=== PATIENT | male | born 1975 | race Caucasian/White ===

== ENCOUNTER 2017-04-07 14:01 | Emergency (ER) | payer MEDICAID ==
[2017-04-07 14:10] VITALS: BP 122/81; PULSE 102; RESP 16; TEMP 98.3; O2SAT 96
[2017-04-07] MEDS ORDERED: Bacitracin 500 Units/gm Oint Foilpak UD TOP ONE (14:35)
--- NOTE | 2017-04-07 15:01 | C.PDOC ---
History Of Present Illness 41 y/o male presents to ED with complaints of right foot pain since this morning. 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 Patient denies change in sensation, numbness, tingling or any other complaints at this time. Time Seen by Provider: 04/07/17 14:23 Chief Complaint (Nursing): Lower Extremity Problem/Injury History Per: Patient History/Exam Limitations: no limitations Onset/Duration Of Symptoms: Days Current Symptoms Are (Timing): Still Present Past Medical History Reviewed: Historical Data, Nursing Documentation, Vital Signs Vital Signs: Last Vital Signs Temp 98.3 F 04/07/17 14:07 Pulse 102 H 04/07/17 14:07 Resp 16 04/07/17 14:07 BP 122/81 04/07/17 14:07 Pulse Ox 96 04/07/17 16:59 - Medical History PMH: Diabetes, HTN Family History: States: No Known Family Hx - Social History Hx Tobacco Use: No Hx Alcohol Use: No Hx Substance Use: No - Immunization History Hx Tetanus Toxoid Vaccination: No Hx Influenza Vaccination: No Hx Pneumococcal Vaccination: No Review Of Systems Except As Marked, All Systems Reviewed And Found Negative. Gastrointestinal: Negative for: Nausea, Vomiting Musculoskeletal: Positive for: Foot Pain. Negative for: Leg Pain Skin: Negative for: Rash Neurological: Negative for: Weakness, Numbness, Dizziness Physical Exam - Physical Exam Appears: Non-toxic, No Acute Distress Skin: Warm, No Rash Head: Atraumatic, Normacephalic Eye(s): bilateral: Normal Inspection, EOMI Nose: Normal Oral Mucosa: Moist Neck: Supple Chest: Symmetrical Respiratory: No Accessory Muscle Use Extremity: Normal ROM, Tenderness, Capillary Refill (<2 seconds), No Deformity, No Swelling, Other (Two puncture wounds to plantar aspect of right foot, dry blood ) Pulses: Left Dorsalis Pedis: Normal, Right Dorsalis Pedis: Normal Neurological/Psych: Oriented x3, Normal Speech, Normal Cognition, Normal Motor, Normal Sensation ED Course And Treatment O2 Sat by Pulse Oximetry: 96 (RA) Pulse Ox Interpretation: Normal Progress Note: Wounds irrigated and cleansed by RN. Patient offered xray but declined, discussed signs of wound infection, wound care and follow up with PMD in 1-2 days. Disposition - Disposition Disposition: HOME/ ROUTINE Disposition Time: 14:58 Condition: STABLE Additional Instructions: Follow up with primary medical doctor in 1-3 days without fail for further evaluation. Take medications as prescribed. Return to the emergency department at any time if symptoms persist or worsen. 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 - Scribe Statement The provider has reviewed the documentation as recorded by the Julisa May All medical record entries made by the Julisa were at my direction and personally dictated by me. I have reviewed the chart and agree that the record accurately reflects my personal performance of the history, physical exam, medical decision making, and the department course for this patient. I have also personally directed, reviewed, and agree with the discharge instructions and disposition.
[2017-04-07] MEDS ORDERED: Bacitracin 500 Units/gm Oint Foilpak UD ONE (15:19)
== END 2017-04-07 15:37 | disposition home or self-care (01) ==
LOC: C.ER 14:01
DX: S91.331A Puncture wound without foreign body, right foot, initial encounter (principal); W22.8XXA Striking against or struck by other objects, initial encounter; Z23 Encounter for immunization

== ENCOUNTER 2017-12-22 19:01 | Emergency (ER) | payer MEDICAID ==
[2017-12-22 19:17] VITALS: BP 128/83; PULSE 95; RESP 20; TEMP 97; O2SAT 100
--- NOTE | 2017-12-22 20:26 | C.PDOC ---
History Of Present Illness 42 y/o male presents to ED s/p twisting right ankle walking down the stairs earlier today with complaints of right ankle and foot pain. Patient denies numbness,weakness, back pain or any other complaints at this time. Time Seen by Provider: 12/22/17 19:21 Chief Complaint (Nursing): Lower Extremity Problem/Injury History Per: Patient History/Exam Limitations: no limitations Onset/Duration Of Symptoms: Hrs Current Symptoms Are (Timing): Still Present Past Medical History Reviewed: Historical Data, Nursing Documentation, Vital Signs Vital Signs: Last Vital Signs Temp 97 F L 12/22/17 19:15 Pulse 95 H 12/22/17 19:15 Resp 20 12/22/17 21:00 BP 128/83 12/22/17 19:15 Pulse Ox 100 12/22/17 20:49 - Medical History PMH: Diabetes, HTN Surgical History: No Surg Hx Family History: States: No Known Family Hx - Social History Hx Tobacco Use: No Hx Alcohol Use: No Hx Substance Use: No - Immunization History Hx Tetanus Toxoid Vaccination: No Hx Influenza Vaccination: No Hx Pneumococcal Vaccination: No Review Of Systems Cardiovascular: Negative for: Chest Pain Musculoskeletal: Positive for: Foot Pain. Negative for: Leg Pain Skin: Negative for: Rash Neurological: Negative for: Weakness, Numbness Physical Exam - Physical Exam Appears: Non-toxic, No Acute Distress Skin: Warm, No Rash Head: Atraumatic, Normacephalic Eye(s): bilateral: Normal Inspection Oral Mucosa: Moist Extremity: Tenderness (To right lateral malleolus and lateral aspect of right foot), Capillary Refill (<2 seconds), No Deformity, Swelling (right foot), Other (Erythema to right foot ) Extremity: Bilateral: Normal Color And Temperature Pulses: Left Dorsalis Pedis: Normal, Right Dorsalis Pedis: Normal Neurological/Psych: Oriented x3, Normal Motor, Normal Sensation Gait: Other (with a mild ,limp due to pain) ED Course And Treatment O2 Sat by Pulse Oximetry: 100 (RA) Pulse Ox Interpretation: Normal - Other Rad Right ankle X-Ray: Interpreted by Me, Viewed By Me Interpretation: No fx or dislocation Right foot X-Ray: Interpreted by Me, Viewed By Me Interpretation: NO fx or dislocation Progress Note: XR results d/w pt who was informed will be contacted if any XR discrepancies. pt was placed in ULISSES wrap by RN. pt ambulatory with mild limp due to pain but refused crutches- has a pair at home ( instructed no to low weight bearing for at least 2-3 days along with elavation and NSAID . Pt advised follow up with PMD for ortho referral as needed Reassessment Condition: Improved Medical Decision Making Medical Decision Making: Plan: Motrin and Xray Disposition Counseled Patient/Family Regarding: Diagnosis - Disposition Referrals: Celina Dejesus [Staff Provider] - Disposition: HOME/ ROUTINE Disposition Time: 20:47 Condition: STABLE Additional Instructions: Leg elevation Apply ICE to area Follow up with your doctor for orthopedist refereal as needed Return to ER if worse Prescriptions: Ibuprofen [Motrin] 600 mg PO Q6H #24 tab Instructions: Ankle Sprain (DC) Forms: [employer] ([place]) Print Language: MONGOLIAN - Clinical Impression Clinical Impression: Right ankle sprain - 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 - Scribe Statement The provider has reviewed the documentation as recorded by the Johnathanibstacy May All medical record entries made by the Julisa were at my direction and personally dictated by me. I have reviewed the chart and agree that the record accurately reflects my personal performance of the history, physical exam, medical decision making, and the department course for this patient. I have also personally directed, reviewed, and agree with the discharge instructions and disposition.
--- NOTE | 2017-12-23 11:40 | RAD ---
PROCEDURE: Right Foot Radiographs. HISTORY: pain, swelling, latersl aspect COMPARISON: None. FINDINGS: BONES: No acute fracture or destructive bony lesion identified. JOINTS: Normal. SOFT TISSUES: Normal. OTHER FINDINGS: None. IMPRESSION: Unremarkable right foot radiographs.
--- NOTE | 2017-12-23 11:41 | RAD ---
PROCEDURE: Right Ankle Radiographs. HISTORY: R/O FX COMPARISON: None FINDINGS: BONES: No acute fracture or destructive bony lesion identified. A small accessory ossicle seen inferior to the medial malleolus JOINTS: Normal. No osteoarthritis. Ankle mortise maintained. Talar dome intact SOFT TISSUES: Normal. OTHER FINDINGS: None. IMPRESSION: Unremarkable right ankle radiographs.
== END 2017-12-22 21:00 | disposition home or self-care (01) ==
LOC: C.ER 19:01
DX: S93.401A Sprain of unspecified ligament of right ankle, initial encounter (principal); X50.1XXA Overexertion from prolonged static or awkward postures, initial encounter; Y92.9 Unspecified place or not applicable

== ENCOUNTER 2018-04-08 16:40 | Emergency (ER) | payer MEDICAID ==
[2018-04-08] MEDS ORDERED: Sodium Chloride 0.9% 2,000 ML IV ONE (17:06)
[2018-04-08 17:38] LABS: LYMPH # 1.2 K/uL (1.0-4.3); MONO # 0.9 K/uL (0.0-0.8)
[2018-04-08 17:57] LABS: ALB/GLOB RATIO 1.6 (1.0-2.1); ALBUMIN 5.5 g/dL (3.5-5.0); ALT/SGPT 48 U/L (21-72); AST/SGOT 44 U/L (17-59); BLOOD UREA NITROGEN 24 mg/dL (9-20); CALCIUM 10.4 mg/dl (8.6-10.4); GFR NON-AFRICAN AMERICAN 42
--- NOTE | 2018-04-08 17:58 | C.PDOC ---
History Of Present Illness 42 y/o male with history of DM and HTN presents to ED with c/o fatigue, dehydration, weakness and x1 episode vomiting since earlier today while working outside. Patient states he went home and symptoms persisted prompting visit to ED. Patient denies chest pain, sob, loc or any other complaints at this time. Time Seen by Provider: 04/08/18 17:05 Chief Complaint (Nursing): GI Problem History Per: Patient History/Exam Limitations: no limitations Onset/Duration Of Symptoms: Hrs Current Symptoms Are (Timing): Still Present Past Medical History Reviewed: Historical Data, Nursing Documentation, Vital Signs Vital Signs: Last Vital Signs Temp 98.5 F 04/08/18 16:50 Pulse 114 H 04/08/18 16:50 Resp 17 04/08/18 16:50 BP 126/88 04/08/18 16:50 Pulse Ox 97 04/08/18 18:55 - Medical History PMH: Diabetes, HTN Surgical History: No Surg Hx Family History: States: No Known Family Hx - Social History Hx Tobacco Use: No Hx Alcohol Use: No Hx Substance Use: No - Immunization History Hx Tetanus Toxoid Vaccination: No Hx Influenza Vaccination: No Hx Pneumococcal Vaccination: No Review Of Systems Except As Marked, All Systems Reviewed And Found Negative. Constitutional: Positive for: Weakness, Other (fatigue) Gastrointestinal: Positive for: Nausea, Vomiting Physical Exam - Physical Exam Appears: Non-toxic, No Acute Distress Skin: Warm, Dry, No Rash Head: Atraumatic, Normacephalic Eye(s): bilateral: Normal Inspection Oral Mucosa: Dry Neck: Supple Cardiovascular: Rhythm Regular Respiratory: Normal Breath Sounds, No Rales, No Rhonchi, No Wheezing Gastrointestinal/Abdominal: Soft, No Tenderness, No Guarding, No Rebound Neurological/Psych: Oriented x3, Normal Speech, Normal Cognition ED Course And Treatment - Laboratory Results Result Diagrams: 04/08/18 17:34 04/08/18 17:34 ECG: Interpreted By Me, Viewed By Me ECG Rhythm: Sinus Tachycardia Rate From EC (BPM) O2 Sat by Pulse Oximetry: 97 (RA) Pulse Ox Interpretation: Normal Medical Decision Making Medical Decision Making: Assessment: Heat exposure case s/o to Dr. Cunha at 1900 pending cxr, reevaluation and disposition Disposition - Disposition Disposition Time: 19:00 Condition: STABLE Forms: [employer] (Yi) - Clinical Impression Clinical Impression: Heat exhaustion - Scribe Statement The provider has reviewed the documentation as recorded by the Scribe Estevan May All medical record entries made by the Scribe were at my direction and personally dictated by me. I have reviewed the chart and agree that the record accurately reflects my personal performance of the history, physical exam, medical decision making, and the department course for this patient. I have also personally directed, reviewed, and agree with the discharge instructions and disposition. Physician Patient Turnover Patient Signed Over To: Alejandro Cunha
[2018-04-08 18:10] LABS: BASO # 0.2 K/uL (0.0-0.2); EOS % 0.1 % (0.0-4.0); LYMPH % 7.1 % (20.0-40.0); MEAN CELL VOLUME 85.7 fL (80.0-94.0); MEAN CORPUSCULAR HEMOGLOBIN 30.4 pg (27.0-31.0); MEAN CORPUSCULAR HGB CONC 35.4 g/dL (33.0-37.0); MEAN PLATELET VOLUME 9.1 fL (7.2-11.7); MONO % 5.3 % (0.0-10.0); NEUT # 14.6 K/uL (1.8-7.0); NEUT % 86.5 % (50.0-75.0); NRBC % 0.2 % (0.0-2.0); RBC 5.53 Mil/uL (4.40-5.90); RED CELL DISTRIBUTION WIDTH 12.5 % (11.5-14.5)
[2018-04-08 18:12] LABS: HEMOGLOBIN 16.8 g/dL (12.0-18.0); PLATELET COUNT 336 K/uL (130-400); WHITE BLOOD COUNT 16.9 K/uL (4.8-10.8)
[2018-04-08 18:27] LABS: SQUAMOUS EPITHIAL 1 /hpf (0-5); URINE BACTERIA RARE (<OCC); URINE BILIRUBIN NEGATIVE (NEGATIVE); URINE BLOOD 1+ (NEGATIVE); URINE CLARITY Hazy (Clear); URINE COLOR Amber (YELLOW); URINE GLUCOSE (UA) 3+ mg/dL (Normal); URINE HYALINE CAST >20 /lpf (0-2); URINE LEUKOCYTE ESTERASE NEG Leu/uL (Negative); URINE PROTEIN 2+ mg/dL (NEGATIVE); URINE UROBILINOGEN NORMAL mg/dL (0.2-1.0)
[2018-04-08 18:38] LABS: LYMPHOCYTE 9 % (20-40); MONOCYTE 4 % (0-10); NEUTROPHIL 87 % (50-75); PLATELET ESTIMATE NORMAL (NORMAL); TOTAL CELLS COUNTED 100
[2018-04-08] MEDS ORDERED: Sodium Chloride 0.9% 1,000 ML IV STA (19:40)
[2018-04-08] MEDS ORDERED: Sodium Chloride 0.9% 1,000 ML ONE (19:48)
[2018-04-08 20:23] VITALS: RESP 18
[2018-04-08 21:57] VITALS: BP 121/74; PULSE 74; TEMP 97.6; O2SAT 98
--- NOTE | 2018-04-09 08:00 | RAD ---
Chest x-ray single frontal view History: Fatigue. Comparison: 07/19/2015 Findings: No focal infiltrate or effusion. Tortuous aorta. Heart size within normal limits. Impression: No focal infiltrate or effusion.
--- NOTE | 2018-04-09 20:09 | CARD ---
APPROVED REPORT Date of service: 04/08/2018 EKG Measurement Heart [id number] NM [id number] <Conclusion> Sinus tachycardia Otherwise normal ECG
== END 2018-04-08 21:48 | disposition home or self-care (01) ==
LOC: C.ER 16:40
DX: T67.5XXA Heat exhaustion, unspecified, initial encounter (principal); I10 Essential (primary) hypertension; E11.9 Type 2 diabetes mellitus without complications
CPT/HCPCS: 71045; 80053; 81001; 82550; 82948; 83735; 84443; 84484; 85025; 93005; 96360; 99285; J7030

== ENCOUNTER 2018-06-08 16:55 | Inpatient (IN) | payer MEDICAID ==
--- NOTE | 2018-06-08 18:00 | C.PDOC ---
History Of Present Illness 43 year old male with PMHx of DM was sent to ED by Dr. Dejesus for evaluation of cellulitis to L lower leg worsening since yesterday. Patient states had a fall at work one week ago causing laceration to L lower leg which began developing redness, warmth and pain yesterday despite taking amoxicillin BID for the past week. He was given one dose of IV abx at his PMD's office today (does not recall which abx). Denies fever, chills, diaphoresis. <Sandra Ham P - Last Filed: 06/08/18 20:53> <Phu Rodriguez E - Last Filed: 06/08/18 17:48> <Sandra Ham P - Last Filed: 06/08/18 20:53> Time Seen by Provider: 06/08/18 17:48 Chief Complaint (Nursing): Abnormal Skin Integrity Past Medical History Vital Signs: Last Vital Signs Temp 99.1 F 06/08/18 17:21 Pulse 93 H 06/08/18 17:21 Resp 18 06/08/18 17:21 BP 116/79 06/08/18 17:21 Pulse Ox 97 06/08/18 17:21 - Medical History PMH: Diabetes, HTN - Social History Hx Tobacco Use: No Hx Alcohol Use: No Hx Substance Use: No - Immunization History Hx Tetanus Toxoid Vaccination: No Hx Influenza Vaccination: No Hx Pneumococcal Vaccination: No <Phu Rodriguez E - Last Filed: 06/08/18 17:48> Vital Signs: Last Vital Signs Temp 97.9 F 06/08/18 19:44 Pulse 86 06/08/18 19:44 Resp 18 06/08/18 19:44 BP 129/83 06/08/18 19:44 Pulse Ox 97 06/08/18 19:44 Family History: States: No Known Family Hx <Sandra Ham P - Last Filed: 06/08/18 20:53> Review Of Systems Constitutional: Negative for: Fever, Chills Cardiovascular: Negative for: Chest Pain, Palpitations Respiratory: Negative for: Cough, Shortness of Breath Gastrointestinal: Negative for: Nausea, Vomiting Genitourinary: Negative for: Dysuria, Frequency Musculoskeletal: Positive for: Leg Pain Neurological: Negative for: Weakness, Numbness, Dizziness <Sandra Ham P - Last Filed: 06/08/18 20:53> Physical Exam - Physical Exam Appears: Non-toxic, No Acute Distress Skin: Warm, Other (L anterior holliday with erythema, warmth and edema demarcated with black ink.) Head: Atraumatic, Normacephalic Lips: Laceration (to vermillian border of lower lip) Throat: Normal, No Erythema Neck: Normal, Normal ROM Cardiovascular: Rhythm Regular, No Rhythm Irregular, No Friction Rub, No Murmur, No JVD Respiratory: Normal Breath Sounds, No Decreased Breath Sounds, No Accessory Muscle Use, No Rales, No Rhonchi, No Stridor, No Wheezing Gastrointestinal/Abdominal: Normal Exam, Bowel Sounds, Soft, No Tenderness, No Guarding, No Rebound Extremity: Normal ROM, Tenderness (to palpation of L holliday), Other (healing lac eration mid L holliday with surrounding area to erythema and warmth) Pulses: Left Dorsalis Pedis: Normal, Right Dorsalis Pedis: Normal Neurological/Psych: Oriented x3, Normal Cranial Nerves, Normal Motor <HamSandra P - Last Filed: 06/08/18 20:53> ED Course And Treatment O2 Sat by Pulse Oximetry: 97 <Phu Rodriguez E - Last Filed: 06/08/18 17:48> - Laboratory Results Result Diagrams: 06/08/18 18:35 06/08/18 18:35 <Sandra Ham P - Last Filed: 06/08/18 20:53> Medical Decision Making Medical Decision Making: Plan: CBC: WNL CMP: glc 115 L tibia Xray-negative CXR-negativeDose of zosyn and vanco given. Case discussed with Dr. Cabrera who accepts admission. <Sandra Ham P - Last Filed: 06/08/18 20:53> Disposition <Phu Rodriguez E - Last Filed: 06/08/18 17:48> - Disposition Disposition Time: 19:30 <Sandra Ham P - Last Filed: 06/08/18 20:53> - Disposition Disposition: HOSPITALIZED Condition: STABLE - Clinical Impression Clinical Impression: Cellulitis
[2018-06-08] MEDS ORDERED: Piperacillin/Tazobact 3.375 gm 100 ML IV STA (18:04)
[2018-06-08] MEDS ORDERED: Vancomycin 1 GM 1 GM/250 ML BAG IV SCH (18:15)
[2018-06-08 18:40] LABS: BASO # 0.1 K/uL (0.0-0.2); BASO % 1.2 % (0.0-2.0); EOS # 0.3 K/uL (0.0-0.7); HEMOGLOBIN 13.9 g/dL (12.0-18.0); LYMPH # 2.2 K/uL (1.0-4.3); LYMPH % 21.1 % (20.0-40.0); MEAN CELL VOLUME 85.6 fL (80.0-94.0); MEAN CORPUSCULAR HEMOGLOBIN 30.4 pg (27.0-31.0); MEAN CORPUSCULAR HGB CONC 35.5 g/dL (33.0-37.0); MEAN PLATELET VOLUME 7.8 fL (7.2-11.7); MONO # 0.6 K/uL (0.0-0.8); MONO % 5.6 % (0.0-10.0); NEUT # 7.2 K/uL (1.8-7.0); NEUT % 69.1 % (50.0-75.0); RBC 4.59 Mil/uL (4.40-5.90); RED CELL DISTRIBUTION WIDTH 12.4 % (11.5-14.5); WHITE BLOOD COUNT 10.4 K/uL (4.8-10.8)
[2018-06-08 18:53] LABS: ALB/GLOB RATIO 1.6 (1.0-2.1); ALBUMIN 4.6 g/dL (3.5-5.0); ALT/SGPT 37 U/L (21-72); AST/SGOT 30 U/L (17-59); BLOOD UREA NITROGEN 14 mg/dL (9-20); CALCIUM 9.8 mg/dl (8.6-10.4); GFR NON-AFRICAN AMERICAN > 60
--- NOTE | 2018-06-08 18:56 | RAD ---
Date of service: 06/08/2018 PROCEDURE: CHEST RADIOGRAPH, 1 VIEW HISTORY: SOB COMPARISON: Chest radiograph dated 04/08/2018. FINDINGS: LUNGS: Clear. PLEURA: No pneumothorax or pleural fluid seen. CARDIOVASCULAR: No aortic atherosclerotic calcifications. Cardiomediastinal silhouette within normal limits. OSSEOUS STRUCTURES: No significant abnormalities. VISUALIZED UPPER ABDOMEN: Normal. OTHER FINDINGS: None. IMPRESSION: No active disease.
[2018-06-08] MEDS ORDERED: Piperacillin/Tazobact 3.375 gm 100 ML IVPB ONE (19:28)
[2018-06-08] MEDS ORDERED: Vancomycin 1 GM 1 GM/250 ML BAG IVPB ONE (19:37)
[2018-06-08] MEDS ORDERED: Vancomycin 1 GM 1 GM/250 ML BAG IV ONE (20:00)
[2018-06-08] MEDS ORDERED: Acetaminophen-Codeine 300/30 mg Tab PO ONE (20:08)
[2018-06-08] MEDS: Acetaminophen-Codeine 300/30 mg Tab PO PRN (20:11)
[2018-06-08] MEDS: (Novolin R) Insulin Human Regular 100 units/ml vial SC SCH (21:17)
--- NOTE | 2018-06-08 22:10 | CP.PCM.HP ---
Past Patient History - Infectious Disease Hx of Infectious Diseases: None - Past Social History Smoking Status: Never Smoked - CARDIAC Hx Hypertension: Yes - ENDOCRINE/METABOLIC Hx Diabetes Mellitus Type 2: Yes - PSYCHIATRIC Hx Substance Use: No - SURGICAL HISTORY Hx Surgeries: No - ANESTHESIA Hx Anesthesia: No Meds Allergies/Adverse Reactions: Allergies Allergy/AdvReac Type Severity Reaction Status Date / Time No Known Allergies Allergy Verified 06/08/18 17:24 Results - Vital Signs Recent Vital Signs: Last Vital Signs Temp 97.9 F 06/08/18 19:44 Pulse 86 06/08/18 19:44 Resp 18 06/08/18 19:44 BP 129/83 06/08/18 19:44 Pulse Ox 97 06/08/18 19:44 - Labs Result Diagrams: 06/08/18 18:35 06/08/18 18:35 Labs: Laboratory Results - last 24 hr 06/08/18 06/08/18 06/08/18 18:35 18:35 21:07 WBC 10.4 RBC 4.59 Hgb 13.9 D Hct 39.3 MCV 85.6 MCH 30.4 MCHC 35.5 RDW 12.4 Plt Count 295 MPV 7.8 Neut % (Auto) 69.1 Lymph % (Auto) 21.1 [place] % (Auto) 5.6 Eos % (Auto) 3.0 Baso % (Auto) 1.2 Neut # (Auto) 7.2 H Lymph # (Auto) 2.2 [place] # (Auto) 0.6 Eos # (Auto) 0.3 Baso # (Auto) 0.1 Sodium 136 Potassium 4.4 Chloride 97 L Carbon Dioxide 28 Anion Gap 16 BUN 14 Creatinine 0.6 L Est GFR ( Amer) > 60 Est GFR (Non-Af Amer) > 60 POC Glucose (mg/dL) 158 H Random Glucose 115 H Calcium 9.8 Total Bilirubin 0.5 AST 30 ALT 37 Alkaline Phosphatase 89 Total Protein 7.5 Albumin 4.6 Globulin 2.9 Albumin/Globulin Ratio 1.6
[2018-06-09] MEDS: Piperacillin/Tazobact 3.375 GM in Sodium Chloride 0.9% 100 ML IVPB SCH ×4 (01:15→18:02)
[2018-06-09] MEDS: Acetaminophen-Codeine 300/30 mg Tab PO PRN ×3 (04:56→18:09)
--- NOTE | 2018-06-09 07:47 | RAD ---
Date of service: 06/08/2018 PROCEDURE: Radiographs of the left tibia and fibula. HISTORY: wound L lower lateral fib area, 1 wk ago ? FB COMPARISON: None available. TECHNIQUE: Frontal and lateral views obtained. FINDINGS: BONES: No fracture or destructive lesion. JOINT SPACES: Unremarkable. OTHER FINDINGS: No foreign body. No subcutaneous gas-forming cellulitis. IMPRESSION: No periosteal reaction to suggest osteomyelitis. No cortical interruption. No fracture. No subcutaneous emphysema. No radiopaque foreign body.
[2018-06-09] MEDS: (Novolin R) Insulin Human Regular 100 units/ml vial SC SCH ×5 (08:11→21:18)
[2018-06-09] MEDS: Vancomycin 1 gm/NS 200 ml 1 GM/200 ML BAG IVPB SCH ×2 (08:12→19:48)
--- NOTE | 2018-06-09 10:11 | CP.PCM.CON ---
History of Present Illness - History of Present Illness History of Present Illness: Podiatry Consult Note- Dr. Robb 43 y.o M with PMH of DM and HTN seen and evaluated at bedside with attending Dr. Robb. Patient reports left leg pain and swelling x 1 week. Reports the he feel off a ladder and cut his leg also hitting his mouth. Reports seeking help the same day. Reports getting wounds cleaned up and 4 sutures were placed. Patient reports noticing increase pain, swelling and redness which does not seem to get better and came to the ED for evaluation. Denies nausea, fever, shortness of breath, chest pains or chills. PMH: DM and HTN PSH: denies SH: smoker, socially drinks, denies illicit drug use ALL: NKDA Past Patient History - Infectious Disease Hx of Infectious Diseases: None - Past Medical History & Family History Past Medical History?: Yes - Past Social History Smoking Status: Current Some Days Smoker - CARDIAC Hx Hypertension: Yes - ENDOCRINE/METABOLIC Hx Diabetes Mellitus Type 2: Yes - MUSCULOSKELETAL/RHEUMATOLOGICAL Hx Falls: Yes - PSYCHIATRIC Hx Substance Use: No - SURGICAL HISTORY Hx Surgeries: No - ANESTHESIA Hx Anesthesia: No Meds Allergies/Adverse Reactions: Allergies Allergy/AdvReac Type Severity Reaction Status Date / Time No Known Allergies Allergy Verified 06/08/18 17:24 - Medications Medications: Current Medications Acetaminophen (Tylenol 325mg Tab) 650 mg PO Q6 PRN PRN Reason: Pain, Mild (1-3) Last Admin: 06/08/18 21:15 Dose: 650 mg Acetaminophen/Codeine Phosphate (Tylenol/Codeine 300 Mg/30 Mg) 1 ea PO Q6 PRN PRN Reason: Pain, severe (8-10) Last Admin: 06/09/18 04:56 Dose: 1 ea Glipizide (Glucotrol) 10 mg PO BID [facility] Last Admin: 06/09/18 10:01 Dose: 10 mg Heparin Sodium (Porcine) (Heparin) 5,000 units SC Q12 [facility] Last Admin: 06/09/18 10:01 Dose: 5,000 units Vancomycin/Sodium Chloride (Vancomycin 1 Gm/Ns 200 Ml) 1 gm in 200 mls @ 133.333 mls/hr IVPB Q12H [facility]; Protocol Last Admin: 06/09/18 08:12 Dose: 133.333 mls/hr Piperacillin Sod/Tazobactam (Sod 3.375 gm/ Sodium Chloride) 100 mls @ 200 mls/hr IVPB Q6H [facility]; Protocol Last Admin: 06/09/18 08:16 Dose: 200 mls/hr Influenza Virus Vaccine (Fluzone Quad [id number]) 60 mcg IM .ONCE ONE Stop: 06/10/18 10:01 Insulin Human Regular (Novolin R) 0 unit SC ACHS [facility]; Protocol Last Admin: 06/09/18 08:20 Dose: Not Given Lisinopril (Zestril) 20 mg PO DAILY [facility] Last Admin: 06/09/18 10:01 Dose: 20 mg Metformin HCl (Glucophage) 1,000 mg PO BIDCC [facility] Last Admin: 06/09/18 08:21 Dose: 1,000 mg Pneumococcal Polyvalent Vaccine (Pneumovax 23 Vaccine) 0.5 ml IM .ONCE ONE Stop: 06/10/18 10:01 Rosuvastatin Calcium (Crestor) 10 mg PO HS [facility] Last Admin: 06/08/18 21:07 Dose: 10 mg Physical Exam - Constitutional Appears: Well, Non-toxic, No Acute Distress - Extremities Exam Extremities exam: Negative for: calf tenderness Additional comments: VASC: DP and PT 2/4 bilaterally, CFT < 3 seconds x 10 digits, temperature gradient warm to warm, increase warmth noted to anterior aspect of left leg ORTHO: severe pain with palpation to the anterior aspect of left leg, MM is 5/5 in all four compartments in dorsiflexion, plantarflexion, inversion and eversion NEURO: gross and protective sensation intact DERM: linear longitudinal scabbed over wound measuring 9 cm in length on the anterior aspect of left leg. Periwound erythema measuring 10cm in diameter surrounding scabbed over wound. Very mild fluctanance noted with possible superficial abscess underneath scab. Able to expressed .5 cc of purulence material during evaluation. No odor, no tunneling, no probe to bone. Results - Vital Signs Recent Vital Signs: Last Vital Signs Temp 97.4 F L 06/09/18 07:48 Pulse 82 06/09/18 07:48 Resp 70 H 06/09/18 07:48 BP 117/72 06/09/18 07:48 Pulse Ox 20 L 06/09/18 07:48 - Labs Result Diagrams: 06/08/18 18:35 06/08/18 18:35 Labs: Laboratory Results - last 24 hr 06/08/18 06/08/18 06/08/18 18:35 18:35 21:07 WBC 10.4 RBC 4.59 Hgb 13.9 D Hct 39.3 MCV 85.6 MCH 30.4 MCHC 35.5 RDW 12.4 Plt Count 295 MPV 7.8 Neut % (Auto) 69.1 Lymph % (Auto) 21.1 Reynolds % (Auto) 5.6 Eos % (Auto) 3.0 Baso % (Auto) 1.2 Neut # (Auto) 7.2 H Lymph # (Auto) 2.2 Reynolds # (Auto) 0.6 Eos # (Auto) 0.3 Baso # (Auto) 0.1 Sodium 136 Potassium 4.4 Chloride 97 L Carbon Dioxide 28 Anion Gap 16 BUN 14 Creatinine 0.6 L Est GFR ( Amer) > 60 Est GFR (Non-Af Amer) > 60 POC Glucose (mg/dL) 158 H Random Glucose 115 H Calcium 9.8 Total Bilirubin 0.5 AST 30 ALT 37 Alkaline Phosphatase 89 Total Protein 7.5 Albumin 4.6 Globulin 2.9 Albumin/Globulin Ratio 1.6 06/09/18 07:02 WBC RBC Hgb Hct MCV MCH MCHC RDW Plt Count MPV Neut % (Auto) Lymph % (Auto) Reynolds % (Auto) Eos % (Auto) Baso % (Auto) Neut # (Auto) Lymph # (Auto) Reynolds # (Auto) Eos # (Auto) Baso # (Auto) Sodium Potassium Chloride Carbon Dioxide Anion Gap BUN Creatinine Est GFR ( Amer) Est GFR (Non-Af Amer) POC Glucose (mg/dL) 154 H Random Glucose Calcium Total Bilirubin AST ALT Alkaline Phosphatase Total Protein Albumin Globulin Albumin/Globulin Ratio Assessment & Plan - Assessment and Plan (Free Text) Assessment: 43M with PMH DM and HTN with left leg cellulitis and superfical abscess anterior middle left leg. Plan: Patient seen and examined with attending Dr. Robb Labs, vitals, charts reviewed (afebrile, absent leukocytosis WBC 10.4) X-rays reviewed left leg- no OM, no gas emphysema Wound culture taken of left anterior leg Patient has possible superficial abscess underlying healing wound. Explained to patient about bedside incision and drainage and debridement of all nonviable tissue. Explained to patient the benefits, risks, alternatives and complications. Patient understands and is agreeable All questions/concerns addressed 5 cc of 1% lidocaine and 1.5 cc of .5 % marcaine given in a V block fashion to the left foot proximal to the scabbed over wound and cellulitis. Cleansed site and prep in a normal sterile manner. Using #15 blade and a pickup all nonviable soft tissue was excisionally debrided until healthy epithelized tissue was exposed to the level of the skin. A 1 cm linear incision down to the level of subcutaneous tissue was made at the inferior portion of the scab in which about < .3 cc of purulence drainage was expressed. All sites were copiously irrigated with saline solution. Dressed site with betadine soaked telfa and dsd. Patient tolerated the procedure well. C/w IV abx per primary Thank you for allowing us to participate in patient's care Will continue to follow while in house
[2018-06-09] MEDS ORDERED: Lidocaine 1% PF (5ml) Amp INJ ONE (10:22)
[2018-06-09] MEDS ORDERED: Bupivacaine 0.25% 20 ML INJ IJ ONE (10:30)
--- NOTE | 2018-06-09 12:23 | CARD ---
APPROVED REPORT Date of service: 06/08/2018 EKG Measurement Heart [id number] <Conclusion> Normal sinus rhythm ST & T wave abnormality, consider lateral ischemia Abnormal ECG
[2018-06-09 16:13] VITALS: RESP 20
--- NOTE | 2018-06-09 22:29 | CP.PCM.PN ---
Subjective - Subjective Subjective: dictated Objective - Vital Signs/Intake and Output Vital Signs (last 24 hours): Temp Pulse Resp BP Pulse Ox 98.8 F 84 20 121/74 95 06/09/18 16:12 06/09/18 16:12 06/09/18 16:12 06/09/18 16:12 06/09/18 16:12 Intake and Output: 06/09/18 06/10/18 18:59 06:59 Intake Total 1190 500 Output Total 80 Balance 1190 420 - Medications Medications: Current Medications Acetaminophen (Tylenol 325mg Tab) 650 mg PO Q6 PRN PRN Reason: Pain, Mild (1-3) Last Admin: 06/08/18 21:15 Dose: 650 mg Acetaminophen/Codeine Phosphate (Tylenol/Codeine 300 Mg/30 Mg) 1 ea PO Q6 PRN PRN Reason: Pain, severe (8-10) Last Admin: 06/09/18 18:09 Dose: 1 ea Glipizide (Glucotrol) 10 mg PO BID [facility] Last Admin: 06/09/18 17:04 Dose: 10 mg Heparin Sodium (Porcine) (Heparin) 5,000 units SC Q12 [facility] Last Admin: 06/09/18 21:59 Dose: 5,000 units Vancomycin/Sodium Chloride (Vancomycin 1 Gm/Ns 200 Ml) 1 gm in 200 mls @ 133.333 mls/hr IVPB Q12H [facility]; Protocol Last Admin: 06/09/18 19:48 Dose: 133.333 mls/hr Piperacillin Sod/Tazobactam (Sod 3.375 gm/ Sodium Chloride) 100 mls @ 200 mls/hr IVPB Q6H [facility]; Protocol Last Admin: 06/09/18 18:02 Dose: 200 mls/hr Influenza Virus Vaccine (Fluzone Quad [id number]) 60 mcg IM .ONCE ONE Stop: 06/10/18 10:01 Insulin Human Regular (Novolin R) 0 unit SC ACHS [facility]; Protocol Last Admin: 06/09/18 21:18 Dose: Not Given Lisinopril (Zestril) 20 mg PO DAILY [facility] Last Admin: 06/09/18 10:01 Dose: 20 mg Metformin HCl (Glucophage) 1,000 mg PO BIDCC [facility] Last Admin: 06/09/18 17:03 Dose: 1,000 mg Pneumococcal Polyvalent Vaccine (Pneumovax 23 Vaccine) 0.5 ml IM .ONCE ONE Stop: 06/10/18 10:01 Rosuvastatin Calcium (Crestor) 10 mg PO HS [facility] Last Admin: 06/09/18 22:01 Dose: 10 mg - Labs Labs: 06/08/18 18:35 06/08/18 18:35
[2018-06-10] MEDS: Acetaminophen-Codeine 300/30 mg Tab PO PRN (00:15)
[2018-06-10] MEDS: Piperacillin/Tazobact 3.375 GM in Sodium Chloride 0.9% 100 ML IVPB SCH ×4 (00:19→19:43)
--- NOTE | 2018-06-10 02:57 | PN ---
DATE: 06/09/2018 SUBJECTIVE: The patient is afebrile. He is on antibiotics. Seen by Podiatry. PHYSICAL EXAMINATION: VITAL SIGNS: Blood pressure 121/74, pulse 84, respiratory rate 20, and temperature 98.8. LUNGS: Clear. CARDIOVASCULAR SYSTEM: S1, S2 regular. ABDOMEN: Soft. ASSESSMENT: 1. Left leg laceration with superadded infection. 2. Type 2 diabetes. PLAN: Continue Accucheks, sliding scale, antibiotics. Monitor the patient. Efrain Cabrera MD
[2018-06-10] MEDS: (Novolin R) Insulin Human Regular 100 units/ml vial SC SCH ×4 (08:05→21:46)
[2018-06-10] MEDS: Vancomycin 1 gm/NS 200 ml 1 GM/200 ML BAG IVPB SCH ×2 (08:26→19:41)
--- NOTE | 2018-06-10 08:40 | HP ---
CHIEF COMPLAINT: Left leg pain. HISTORY OF PRESENT ILLNESS: This is a 43-year-old male who had an injury to holliday of his left leg and the wound never healed and it gotten worse with purulent discharge, and he came to emergency room. He is having pain in left holliday; but he denies any fever, chills, rigors. He denies any nausea, vomiting, or diarrhea. Denies any polyuria, polydipsia, or polyphagia. Denies any hematuria or pyuria. He denies any sneezing, itchy eyes, itchy nose. PAST MEDICAL HISTORY: Type 2 diabetes. SOCIAL HISTORY: Nonsmoker, non-EtOH user. CURRENT MEDICATIONS: He is on glipizide, Victoza, lisinopril, metformin. PHYSICAL EXAMINATION: GENERAL: A middle-aged male in no acute distress. VITAL SIGNS: Blood pressure 116/73, pulse 59, respiratory rate 20, and temperature 98.5. SKIN: The patient has a laceration on anterior aspect of left leg with purulent discharge. Laceration is about 4 inches long and skin is lacerated. HEENT: Atraumatic and normocephalic. Negative pallor. Negative jaundice. Extraocular movements are intact. NECK: Supple. No JVD. No lymph node. No thyromegaly. No carotid bruits. CHEST WALL: Bilateral symmetrical expansion. No heave, no thrill, no masses. LUNGS: Clear. No rales. No rhonchi. CARDIOVASCULAR SYSTEM: PMI in the fifth intercostal space. S1, S2 regular. ABDOMEN: Soft, nontender. Bowel sounds are positive. RECTAL: Negative. EXTREMITIES: No clubbing, cyanosis, or edema. CENTRAL NERVOUS SYSTEM: Normal. ASSESSMENT: 1. Left leg laceration with suppurative infection. 2. Diabetes. PLAN: Continue antibiotics, Accu-Chek, sliding scale, tight sugar control. Efrain Cabrera MD
--- NOTE | 2018-06-10 08:54 | CP.PCM.PN ---
<Omkar Robb - Last Filed: 06/10/18 08:54> Subjective - Date & Time of Evaluation Date of Evaluation: 06/10/18 Time of Evaluation: 08:53 - Subjective Subjective: pt seen at bedside for cellulitis of leg left . Objective - Vital Signs/Intake and Output Vital Signs (last 24 hours): Temp Pulse Resp BP Pulse Ox 98.3 F 81 20 111/67 96 06/10/18 00:00 06/10/18 00:00 06/10/18 00:00 06/10/18 00:00 06/10/18 00:00 Intake and Output: 06/10/18 06/10/18 06:59 18:59 Intake Total 940 Output Total 80 Balance 860 - Medications Medications: Current Medications Acetaminophen (Tylenol 325mg Tab) 650 mg PO Q6 PRN PRN Reason: Pain, Mild (1-3) Last Admin: 06/08/18 21:15 Dose: 650 mg Acetaminophen/Codeine Phosphate (Tylenol/Codeine 300 Mg/30 Mg) 1 ea PO Q6 PRN PRN Reason: Pain, severe (8-10) Last Admin: 06/10/18 00:15 Dose: 1 ea Glipizide (Glucotrol) 10 mg PO BID [facility] Last Admin: 06/09/18 17:04 Dose: 10 mg Heparin Sodium (Porcine) (Heparin) 5,000 units SC Q12 [facility] Last Admin: 06/09/18 21:59 Dose: 5,000 units Vancomycin/Sodium Chloride (Vancomycin 1 Gm/Ns 200 Ml) 1 gm in 200 mls @ 133.333 mls/hr IVPB Q12H [facility]; Protocol Last Admin: 06/10/18 08:26 Dose: 133.333 mls/hr Piperacillin Sod/Tazobactam (Sod 3.375 gm/ Sodium Chloride) 100 mls @ 200 mls/hr IVPB Q6H [facility]; Protocol Last Admin: 06/10/18 06:43 Dose: 200 mls/hr Influenza Virus Vaccine (Fluzone Quad [id number]) 60 mcg IM .ONCE ONE Stop: 06/10/18 10:01 Insulin Human Regular (Novolin R) 0 unit SC ACHS [facility]; Protocol Last Admin: 06/10/18 08:05 Dose: Not Given Lisinopril (Zestril) 20 mg PO DAILY [facility] Last Admin: 06/09/18 10:01 Dose: 20 mg Metformin HCl (Glucophage) 1,000 mg PO BIDCC [facility] Last Admin: 06/10/18 08:27 Dose: 1,000 mg Pneumococcal Polyvalent Vaccine (Pneumovax 23 Vaccine) 0.5 ml IM .ONCE ONE Stop: 06/10/18 10:01 Rosuvastatin Calcium (Crestor) 10 mg PO HS [facility] Last Admin: 06/09/18 22:01 Dose: 10 mg - Labs Labs: 06/08/18 18:35 06/08/18 18:35 <Adrián Linder - Last Filed: 06/10/18 10:33> Subjective - Subjective Subjective: Progress Note for Dr. Robb 43 y.o M with PMH of DM and HTN for left leg cellulits. Was seen by attending Dr. Robb in the AM. Denies acute overnight events. Seen resting comfortably in NAD. Patient reports that he is doing well. Reports pain medication helps with the pain. Reports no increase pain s/p left leg incision and drainage of superficial abscess and debridement of all nonviable tissue including the scabs. Dressing is clean, dry, and intact. Denies nausea, fever, shortness of breath, chest pains or chills. Objective - Vital Signs/Intake and Output Vital Signs (last 24 hours): Temp Pulse Resp BP Pulse Ox 98.3 F 81 20 111/67 96 06/10/18 00:00 06/10/18 00:00 06/10/18 00:00 06/10/18 00:00 06/10/18 00:00 Intake and Output: 06/10/18 06/10/18 06:59 18:59 Intake Total 940 Output Total 80 Balance 860 - Medications Medications: Current Medications Acetaminophen (Tylenol 325mg Tab) 650 mg PO Q6 PRN PRN Reason: Pain, Mild (1-3) Last Admin: 06/08/18 21:15 Dose: 650 mg Acetaminophen/Codeine Phosphate (Tylenol/Codeine 300 Mg/30 Mg) 1 ea PO Q6 PRN PRN Reason: Pain, severe (8-10) Last Admin: 06/10/18 00:15 Dose: 1 ea Glipizide (Glucotrol) 10 mg PO BID [facility] Last Admin: 06/09/18 17:04 Dose: 10 mg Heparin Sodium (Porcine) (Heparin) 5,000 units SC Q12 [facility] Last Admin: 06/09/18 21:59 Dose: 5,000 units Vancomycin/Sodium Chloride (Vancomycin 1 Gm/Ns 200 Ml) 1 gm in 200 mls @ 133.333 mls/hr IVPB Q12H [facility]; Protocol Last Admin: 06/10/18 08:26 Dose: 133.333 mls/hr Piperacillin Sod/Tazobactam (Sod 3.375 gm/ Sodium Chloride) 100 mls @ 200 mls/hr IVPB Q6H [facility]; Protocol Last Admin: 06/10/18 06:43 Dose: 200 mls/hr Insulin Human Regular (Novolin R) 0 unit SC ACHS [facility]; Protocol Last Admin: 06/10/18 08:05 Dose: Not Given Lisinopril (Zestril) 20 mg PO DAILY [facility] Last Admin: 06/09/18 10:01 Dose: 20 mg Metformin HCl (Glucophage) 1,000 mg PO BIDCC [facility] Last Admin: 06/10/18 08:27 Dose: 1,000 mg Rosuvastatin Calcium (Crestor) 10 mg PO HS [facility] Last Admin: 06/09/18 22:01 Dose: 10 mg - Labs Labs: 06/08/18 18:35 06/08/18 18:35 - Constitutional Appears: Well, Non-toxic, No Acute Distress - Extremities Exam Extremities Exam: absent: Calf Tenderness Additional comments: VASC: DP and PT 2/4 bilaterally, CFT < 3 seconds x 10 digits, temperature gradient warm to warm, increase warmth noted to anterior aspect of left leg ORTHO: severe pain with palpation to the anterior aspect of left leg, MM is 5/5 in all four compartments in dorsiflexion, plantarflexion, inversion and eversion NEURO: gross and protective sensation intact DERM: s/p debridement wound is approximately 4 cm in length. Wound base granular and fibrotic tissue, less necrotic tissue. Improved erythema and cellutlitis. Erythema decreasing. No drainage, No odor, no tunneling, no probe to bone. - Neurological Exam Neurological Exam: Alert, Awake, Oriented x3 Assessment and Plan - Assessment and Plan (Free Text) Assessment: 43M with left leg wound with cellulitis -stable, improving Plan: Patient seen and examined with attending Dr. Robb Labs, vitals, charts reviewed (afebrile, absent leukocytosis) X-rays reviewed left leg- no OM, no gas emphysema Wound culture L leg pending Cleansed ulceration with betadine. Dressed with adaptic, dsd, kerlix Ordered Bactroban Will dress with xerform and bactroban, dsd tomorrow C/w IV abx per primary Patient may fully weight bear Will continue to follow while in house Will continue conservative treatment, local wound care No surgical intervention by podiatry
[2018-06-10] MEDS ORDERED: Pneumococcal 23-Valent Vaccine IM ONE (10:00)
[2018-06-10] MEDS ORDERED: Influenza Vaccine 60 MCG/0.5 ML SYR (3 yr & up) IM ONE (10:00)
--- NOTE | 2018-06-10 12:36 | CP.PCM.CON ---
History of Present Illness - History of Present Illness History of Present Illness: 43 y.o M with PMH of DM and HTN seen and evaluated at bedside with attending Dr. Robb. Patient reports left leg pain and swelling x 1 week. Reports the he feel off a ladder and cut his leg also hitting his mouth. Reports getting wounds cleaned up and 4 sutures were placed. Patient reports noticing increase pain, swelling and redness which does not seem to get better and came to the ED for evaluation. started IV antibiotics PMH: DM and HTN PSH: denies SH: smoker, socially drinks, denies illicit drug use ALL: NKDA Review of Systems - Review of Systems All systems: reviewed and no additional remarkable complaints except - Constitutional Constitutional: absent: As Per HPI, Anorexia, Chills, Daytime Sleepiness, Excessive Sweating, Fatigue, Fever, Frequent Falls, Headache, Increased Appetite, Lethargy, Malaise, Night Sweats, Snoring, Sleep Apnea, Weight Gain, Weight Loss, Weakness, Other - EENT Eyes: As Per HPI Ears: absent: As Per HPI, Decreased Hearing, Ear Discharge, Ear Pain, Tinnitus, Abnormal Hearing, Disequilibrium, Dizziness, Other Nose/Mouth/Throat: absent: As Per HPI, Epistaxis, Nasal Congestion, Nasal Discharge, Nasal Obstruction, Nasal Trauma, Nose Pain, Post Nasal Drip, Sinus Pain, Sinus Pressure, Bleeding Gums, Change in Voice, Dental Pain, Dry Mouth, Dysphagia, Halitosis, Hoarsness, Lip Swelling, Mouth Lesions, Mouth Pain, Odynophagia, Sore Throat, Throat Swelling, Tongue Swelling, Facial Pain, Neck Pain, Neck Mass, Other - Cardiovascular Cardiovascular: absent: As Per HPI, Acrocyanosis, Chest Pain, Chest Pain at Rest, Chest Pain with Activity, Claudication, Diaphoresis, Dyspnea, Dyspnea on Exertion, Edema, Irregular Heart Rhythm, Pain Radiating to Arm/Neck/Jaw, Leg Edema, Leg Ulcers, Lightheadedness, Orthopnea, Palpitations, Paroxysmal Nocturnal Dyspnea, Pedal Edema, Radiating Pain, Rapid Heart Rate, Slow Heart Rate, Syncope, Other - Respiratory Respiratory: absent: As Per HPI, Cough, Dyspnea, Hemoptysis, Dyspnea on Exertion, Wheezing, Snoring, Stridor, Pain on Inspiration, Chest Congestion, Excessive Mucous Production, Change in Mucous Color, Pain with Coughing, Other - Gastrointestinal Gastrointestinal: absent: As Per HPI, Abdominal Pain, Belching, Bloating, Change in Bowel Habits, Change in Stool Character, Coffee Ground Emesis, Constipation, Cramping, Diarrhea, Dyspepsia, Dysphagia, Early Satiety, Excessive Flatus, Fecal Incontinence, Heartburn, Hematemesis, Hematochezia, Loose Stools, Melena, Nausea, Odynophagia, Temesmus, Vomiting, Other - Genitourinary Genitourinary: absent: As Per HPI, Change in Urinary Stream, Difficulty Urinating, Dysuria, Flank Pain, Hematuria, Pyuria, Nocturia, Urinary Incontinence, Urinary Frequency, Urinary Hesitance, Urinary Urgency, Voiding Freq/Small Amts, Freq UTI, Hx Renal/Bladder Calculi, Hx /Renal Surgery, Bladder Distension, Other - Musculoskeletal Musculoskeletal: As Per HPI - Integumentary Integumentary: As Per HPI - Neurological Neurological: absent: As Per HPI, Abnormal Gait, Abnormal Hearing, Abnormal Movements, Abnormal Speech, Behavioral Changes, Burning Sensations, Confusion, Convulsions, Disequilibrium, Dizziness, Numbness, Focal Weakness, Frequent Falls, Headaches, Lack of Coordination, Loss of Vision, Memory Loss, Paresthesias, Radicular Pain, Restless Legs, Sensory Deficit, Syncope, Tingling, Tremor, Vertigo, Weakness, Other Visual Disturbances, Other - Psychiatric Psychiatric: absent: As Per HPI, Abnormal Sleep Pattern, Anhedonia, Anxiety, Auditory Hallucinations, Behavioral Changes, Change in Appetite, Change in Libido, Confusion, Depression, Difficulty Concentrating, Hallucinations, Homicidal Ideation, Hopelessness, Irritability, Memory Loss, Mood Swings, Panic Attacks, Paranoia, Suicidal Ideation, Visual Hallucinations, Tactile Hallucinations, Other - Endocrine Endocrine: absent: As Per HPI, Change in Body Appearance, Change in Libido, Cold Intolorance, Deepening of Voice, Excessive Sweating, Fatigue, Flushing, Heat Intolorance, Increase in Ring/Shoe/Hat Size, Palpitations, Polydipsia, Polyphagia, Polyuria, Other - Hematologic/Lymphatic Hematologic: absent: As Per HPI, Easy Bleeding, Easy Bruising, Lymphadenopathy, Other Past Patient History - Infectious Disease Hx of Infectious Diseases: None - Past Medical History & Family History Past Medical History?: Yes - Past Social History Smoking Status: Current Some Days Smoker - CARDIAC Hx Hypertension: Yes - ENDOCRINE/METABOLIC Hx Diabetes Mellitus Type 2: Yes - MUSCULOSKELETAL/RHEUMATOLOGICAL Hx Falls: Yes - PSYCHIATRIC Hx Substance Use: No - SURGICAL HISTORY Hx Surgeries: No - ANESTHESIA Hx Anesthesia: No Meds Home Medications: Home Medication List Medication Instructions Recorded Confirmed Type Clindamycin [Clindamycin HCl] 300 mg PO Q8H #30 cap 06/11/18 Rx Lactobacillus Acidophilus [Bacid 1 cap PO BID #20 cap 06/11/18 Rx Acidophilus] Mupirocin 2% Ointment [Bactroban 1 gm TOP DAILY #1 tube 06/11/18 Rx Ointment] Allergies/Adverse Reactions: Allergies Allergy/AdvReac Type Severity Reaction Status Date / Time No Known Allergies Allergy Verified 06/08/18 17:24 - Medications Medications: Current Medications Acetaminophen (Tylenol 325mg Tab) 650 mg PO Q6 PRN PRN Reason: Pain, Mild (1-3) Last Admin: 06/08/18 21:15 Dose: 650 mg Acetaminophen/Codeine Phosphate (Tylenol/Codeine 300 Mg/30 Mg) 1 ea PO Q6 PRN PRN Reason: Pain, severe (8-10) Last Admin: 06/10/18 00:15 Dose: 1 ea Glipizide (Glucotrol) 10 mg PO BID [facility] Last Admin: 06/10/18 10:48 Dose: 10 mg Heparin Sodium (Porcine) (Heparin) 5,000 units SC Q12 [facility] Last Admin: 06/10/18 10:48 Dose: 5,000 units Vancomycin/Sodium Chloride (Vancomycin 1 Gm/Ns 200 Ml) 1 gm in 200 mls @ 133.333 mls/hr IVPB Q12H [facility]; Protocol Last Admin: 06/10/18 08:26 Dose: 133.333 mls/hr Piperacillin Sod/Tazobactam (Sod 3.375 gm/ Sodium Chloride) 100 mls @ 200 mls /hr IVPB Q6H [facility]; Protocol Last Admin: 06/10/18 12:29 Dose: 200 mls/hr Insulin Human Regular (Novolin R) 0 unit SC ACHS [facility]; Protocol Last Admin: 06/10/18 12:10 Dose: Not Given Lisinopril (Zestril) 20 mg PO DAILY [facility] Last Admin: 06/10/18 10:48 Dose: 20 mg Metformin HCl (Glucophage) 1,000 mg PO BIDCC [facility] Last Admin: 06/10/18 08:27 Dose: 1,000 mg Mupirocin (Bactroban Ointment) 0 gm TOP DAILY PRN Rosuvastatin Calcium (Crestor) 10 mg PO HS [facility] Last Admin: 06/09/18 22:01 Dose: 10 mg Physical Exam - Constitutional Appears: Non-toxic, Chronically Ill - Head Exam Head Exam: NORMOCEPHALIC - Eye Exam Eye Exam: PERRL. absent: Scleral icterus - ENT Exam ENT Exam: Mucous Membranes Dry - Neck Exam Neck exam: Negative for: Lymphadenopathy - Respiratory Exam Respiratory Exam: Decreased Breath Sounds - Cardiovascular Exam Cardiovascular Exam: REGULAR RHYTHM - GI/Abdominal Exam GI & Abdominal Exam: Diminished Bowel Sounds, Soft. absent: Tenderness - Rectal Exam Rectal Exam: Deferred - Exam Exam: NORMAL INSPECTION - Extremities Exam Extremities exam: Positive for: pedal pulses present. Negative for: calf tenderness, normal inspection, pedal edema, tenderness Results - Vital Signs Recent Vital Signs: Last Vital Signs Temp 98.1 F 06/10/18 08:00 Pulse 82 06/10/18 08:00 Resp 20 06/10/18 08:00 BP 122/80 06/10/18 08:00 Pulse Ox 95 06/10/18 08:00 - Labs Result Diagrams: 06/08/18 18:35 06/08/18 18:35 Labs: Laboratory Results - last 24 hr 06/09/18 06/09/18 06/10/18 16:11 21:07 07:04 POC Glucose (mg/dL) 112 H 114 H 136 H 06/10/18 11:33 POC Glucose (mg/dL) 114 H Assessment & Plan (1) Cellulitis Status: Acute - Assessment and Plan (Free Text) Assessment: IV rx in progress orders signed
--- NOTE | 2018-06-10 21:33 | CP.PCM.PN ---
Subjective - Subjective Subjective: dictated Objective - Vital Signs/Intake and Output Vital Signs (last 24 hours): Temp Pulse Resp BP Pulse Ox 98.5 F 84 20 124/79 95 06/10/18 16:00 06/10/18 16:00 06/10/18 16:00 06/10/18 16:00 06/10/18 16:00 Intake and Output: 06/10/18 06/11/18 18:59 06:59 Intake Total 600 Balance 600 - Medications Medications: Current Medications Acetaminophen (Tylenol 325mg Tab) 650 mg PO Q6 PRN PRN Reason: Pain, Mild (1-3) Last Admin: 06/08/18 21:15 Dose: 650 mg Acetaminophen/Codeine Phosphate (Tylenol/Codeine 300 Mg/30 Mg) 1 ea PO Q6 PRN PRN Reason: Pain, severe (8-10) Last Admin: 06/10/18 00:15 Dose: 1 ea Glipizide (Glucotrol) 10 mg PO BID [facility] Last Admin: 06/10/18 17:48 Dose: 10 mg Heparin Sodium (Porcine) (Heparin) 5,000 units SC Q12 [facility] Last Admin: 06/10/18 10:48 Dose: 5,000 units Vancomycin/Sodium Chloride (Vancomycin 1 Gm/Ns 200 Ml) 1 gm in 200 mls @ 133.333 mls/hr IVPB Q12H [facility]; Protocol Last Admin: 06/10/18 19:41 Dose: 133.333 mls/hr Piperacillin Sod/Tazobactam (Sod 3.375 gm/ Sodium Chloride) 100 mls @ 200 mls/hr IVPB Q6H [facility]; Protocol Last Admin: 06/10/18 19:43 Dose: 200 mls/hr Insulin Human Regular (Novolin R) 0 unit SC ACHS [facility]; Protocol Last Admin: 06/10/18 12:10 Dose: Not Given Lisinopril (Zestril) 20 mg PO DAILY [facility] Last Admin: 06/10/18 10:48 Dose: 20 mg Metformin HCl (Glucophage) 1,000 mg PO BIDCC [facility] Last Admin: 06/10/18 17:48 Dose: 1,000 mg Mupirocin (Bactroban Ointment) 0 gm TOP DAILY PRN Rosuvastatin Calcium (Crestor) 10 mg PO HS [facility] Last Admin: 06/09/18 22:01 Dose: 10 mg - Labs Labs: 06/08/18 18:35 06/08/18 18:35
[2018-06-11 00:27] VITALS: TEMP 98.1
[2018-06-11] MEDS: Piperacillin/Tazobact 3.375 GM in Sodium Chloride 0.9% 100 ML IVPB SCH ×4 (00:58→18:01)
--- NOTE | 2018-06-11 03:38 | PN ---
DATE: 06/10/2018 SUBJECTIVE: Bravo is on antibiotics. He is afebrile. He has been seen by Podiatry. He is on wound care. PHYSICAL EXAMINATION: VITAL SIGNS: Blood pressure 124/79, pulse 84, respiratory rate 20, temperature 98.5. LUNGS: Clear. ABDOMEN: Soft. CENTRAL NERVOUS SYSTEM: Awake, alert, and oriented x3. ASSESSMENT: 1. Left leg laceration. 2. Diabetes. PLAN: Monitor the patient. Antibiotics. fErain Cabrera MD
[2018-06-11 08:00] VITALS: O2SAT 96
[2018-06-11] MEDS: (Novolin R) Insulin Human Regular 100 units/ml vial SC SCH ×3 (08:27→17:01)
[2018-06-11] MEDS: Vancomycin 1 gm/NS 200 ml 1 GM/200 ML BAG IVPB SCH (08:29)
--- NOTE | 2018-06-11 13:55 | CP.PCM.PN ---
Subjective - Date & Time of Evaluation Date of Evaluation: 06/11/18 Time of Evaluation: 13:52 - Subjective Subjective: Podiatry Progress Note- Dr. Robb 43 y.o M with PMH of DM and HTN for left leg cellulits and ulceration - improving.Patient is seen resting comfortably in bed, in NAD, and AA0x3. Patient denies acute overnight events. Patient is seen with family and daughter at bedside. Patient denies pain. Dressing is clean, dry, and intact. Denies nausea, fever, shortness of breath, chest pains or chills. Objective - Vital Signs/Intake and Output Vital Signs (last 24 hours): Temp Pulse Resp BP Pulse Ox 98.1 F 74 20 104/65 96 06/11/18 07:00 06/11/18 07:00 06/11/18 07:00 06/11/18 07:00 06/11/18 07:00 Intake and Output: 06/11/18 06/11/18 06:59 18:59 Intake Total 990 Balance 990 - Medications Medications: Current Medications Acetaminophen (Tylenol 325mg Tab) 650 mg PO Q6 PRN PRN Reason: Pain, Mild (1-3) Last Admin: 06/11/18 06:14 Dose: 650 mg Acetaminophen/Codeine Phosphate (Tylenol/Codeine 300 Mg/30 Mg) 1 ea PO Q6 PRN PRN Reason: Pain, severe (8-10) Last Admin: 06/10/18 00:15 Dose: 1 ea Glipizide (Glucotrol) 10 mg PO BID [facility] Last Admin: 06/11/18 11:10 Dose: 10 mg Heparin Sodium (Porcine) (Heparin) 5,000 units SC Q12 [facility] Last Admin: 06/11/18 11:00 Dose: 5,000 units Vancomycin/Sodium Chloride (Vancomycin 1 Gm/Ns 200 Ml) 1 gm in 200 mls @ 133.333 mls/hr IVPB Q12H [facility]; Protocol Last Admin: 06/11/18 08:29 Dose: 133.333 mls/hr Piperacillin Sod/Tazobactam (Sod 3.375 gm/ Sodium Chloride) 100 mls @ 200 mls/hr IVPB Q6H [facility]; Protocol Last Admin: 06/11/18 13:26 Dose: 200 mls/hr Insulin Human Regular (Novolin R) 0 unit SC ACHS [facility]; Protocol Last Admin: 06/11/18 11:25 Dose: Not Given Lisinopril (Zestril) 20 mg PO DAILY [facility] Last Admin: 06/11/18 11:08 Dose: 20 mg Metformin HCl (Glucophage) 1,000 mg PO BIDCC [facility] Last Admin: 06/11/18 08:27 Dose: 1,000 mg Mupirocin (Bactroban Ointment) 0 gm TOP DAILY PRN Rosuvastatin Calcium (Crestor) 10 mg PO HS [facility] Last Admin: 06/10/18 21:47 Dose: 10 mg - Labs Labs: 06/08/18 18:35 06/08/18 18:35 - Constitutional Appears: Well, Non-toxic, No Acute Distress - Extremities Exam Extremities Exam: Calf Tenderness Additional comments: VASC: DP and PT 2/4 bilaterally, CFT < 3 seconds x 10 digits, temperature gradient warm to warm, warmth noted to anterior aspect of left leg- decreasing ORTHO: severe pain with palpation to the anterior aspect of left leg, MM is 5/5 in all four compartments in dorsiflexion, plantarflexion, inversion and eversion NEURO: gross and protective sensation intact DERM: s/p debridement wound is approximately 3 cm in length. Wound base granular and fibrotic tissue, less necrotic tissue. Improved erythema and cellutlitis. Erythema decreasing. No drainage, No odor, no tunneling, no probe to bone. - Neurological Exam Neurological Exam: Alert, Awake - Psychiatric Exam Psychiatric exam: Normal Affect, Normal Mood Assessment and Plan - Assessment and Plan (Free Text) Assessment: 43M with left leg wound with cellulitis -stable, improving Plan: Patient seen and examined with attending Dr. Robb Labs, vitals, charts reviewed (afebrile, absent leukocytosis) X-rays reviewed left leg- no OM, no gas emphysema Wound culture L leg Staph Cleansed ulceration with saline solution, dressed with bactroban and xeroform, dsd, and kerlix C/w IV abx per primary Patient may fully weight bear Will continue to follow while in house Will continue conservative treatment, local wound care No surgical intervention by podiatry Patient is stable per podiatry Upon discharge, patient can shower. Needs to wash with soap and water and pat dry Patient to apply bactroban and dsd daily Keep clean, dry, and intact Patient to follow up to with Dr. Robb in office. Please call for an appointment Continue abx per ID
[2018-06-11 15:52] VITALS: BP 111/68; PULSE 83
--- NOTE | 2018-06-11 17:59 | CP.PCM.PN ---
Subjective - Date & Time of Evaluation Date of Evaluation: 06/11/18 Time of Evaluation: 17:58 - Subjective Subjective: alert and orientedx3, no pain or distress noted. Objective - Vital Signs/Intake and Output Vital Signs (last 24 hours): Temp Pulse Resp BP Pulse Ox 98.1 F 83 20 111/68 96 06/11/18 15:51 06/11/18 15:51 06/11/18 15:51 06/11/18 15:51 06/11/18 15:51 Intake and Output: 06/11/18 06/11/18 06:59 18:59 Intake Total 990 800 Balance 990 800 - Medications Medications: Current Medications Acetaminophen (Tylenol 325mg Tab) 650 mg PO Q6 PRN PRN Reason: Pain, Mild (1-3) Last Admin: 06/11/18 06:14 Dose: 650 mg Acetaminophen/Codeine Phosphate (Tylenol/Codeine 300 Mg/30 Mg) 1 ea PO Q6 PRN PRN Reason: Pain, severe (8-10) Last Admin: 06/10/18 00:15 Dose: 1 ea Glipizide (Glucotrol) 10 mg PO BID [facility] Last Admin: 06/11/18 11:10 Dose: 10 mg Heparin Sodium (Porcine) (Heparin) 5,000 units SC Q12 [facility] Last Admin: 06/11/18 11:00 Dose: 5,000 units Vancomycin/Sodium Chloride (Vancomycin 1 Gm/Ns 200 Ml) 1 gm in 200 mls @ 133.333 mls/hr IVPB Q12H [facility]; Protocol Last Admin: 06/11/18 08:29 Dose: 133.333 mls/hr Piperacillin Sod/Tazobactam (Sod 3.375 gm/ Sodium Chloride) 100 mls @ 200 mls/hr IVPB Q6H [facility]; Protocol Last Admin: 06/11/18 13:26 Dose: 200 mls/hr Insulin Human Regular (Novolin R) 0 unit SC ACHS [facility]; Protocol Last Admin: 06/11/18 17:01 Dose: Not Given Lisinopril (Zestril) 20 mg PO DAILY [facility] Last Admin: 06/11/18 11:08 Dose: 20 mg [facility] Last Admin: 06/11/18 17:04 Dose: 1,000 mg Mupirocin (Bactroban Ointment) 0 gm TOP DAILY PRN Rosuvastatin Calcium (Crestor) 10 mg PO HS [facility] Last Admin: 06/10/18 21:47 Dose: 10 mg - Labs Labs: 06/08/18 18:35 06/08/18 18:35 Assessment and Plan - Assessment and Plan (Free Text) Assessment: Patient with left leg non healing wound , seen and examined. Alert and orientedx3, denies acute pain, no acute distress. Cleared by DR Robb and DR Cabrera, plan to discharge home on clindmycin and daily dressing change. Advised to follow up with DR Robb and PMD in 1 week.
--- NOTE | 2018-06-11 19:04 | CP.PCM.PN ---
Subjective - Date & Time of Evaluation Date of Evaluation: 06/11/18 Time of Evaluation: 08:00 - Subjective Subjective: 43 y.o M with PMH of DM and HTN for left leg cellulits and ulceration - improving Objective - Vital Signs/Intake and Output Vital Signs (last 24 hours): Temp Pulse Resp BP Pulse Ox 98.1 F 83 20 111/68 96 06/11/18 15:51 06/11/18 15:51 06/11/18 15:51 06/11/18 15:51 06/11/18 15:51 Intake and Output: 06/11/18 06/12/18 18:59 06:59 Intake Total 800 Balance 800 - Medications Medications: Current Medications Acetaminophen (Tylenol 325mg Tab) 650 mg PO Q6 PRN PRN Reason: Pain, Mild (1-3) Last Admin: 06/11/18 06:14 Dose: 650 mg Acetaminophen/Codeine Phosphate (Tylenol/Codeine 300 Mg/30 Mg) 1 ea PO Q6 PRN PRN Reason: Pain, severe (8-10) Last Admin: 06/10/18 00:15 Dose: 1 ea Glipizide (Glucotrol) 10 mg PO BID [facility] Last Admin: 06/11/18 18:02 Dose: 10 mg Heparin Sodium (Porcine) (Heparin) 5,000 units SC Q12 [facility] Last Admin: 06/11/18 11:00 Dose: 5,000 units Vancomycin/Sodium Chloride (Vancomycin 1 Gm/Ns 200 Ml) 1 gm in 200 mls @ 133.333 mls/hr IVPB Q12H [facility]; Protocol Last Admin: 06/11/18 08:29 Dose: 133.333 mls/hr Piperacillin Sod/Tazobactam (Sod 3.375 gm/ Sodium Chloride) 100 mls @ 200 mls/hr IVPB Q6H [facility]; Protocol Last Admin: 06/11/18 18:01 Dose: 200 mls/hr Insulin Human Regular (Novolin R) 0 unit SC ACHS [facility]; Protocol Last Admin: 06/11/18 17:01 Dose: Not Given Lisinopril (Zestril) 20 mg PO DAILY [facility] Last Admin: 06/11/18 11:08 Dose: 20 mg [facility] Last Admin: 06/11/18 17:04 Dose: 1,000 mg Mupirocin (Bactroban Ointment) 0 gm TOP DAILY PRN Rosuvastatin Calcium (Crestor) 10 mg PO HS [facility] Last Admin: 06/10/18 21:47 Dose: 10 mg - Labs Labs: 06/08/18 18:35 06/08/18 18:35 - Constitutional Appears: Non-toxic, Chronically Ill - Head Exam Head Exam: NORMOCEPHALIC - Eye Exam Eye Exam: absent: Scleral icterus - ENT Exam ENT Exam: Mucous Membranes Dry - Neck Exam Neck Exam: absent: Lymphadenopathy - Respiratory Exam Respiratory Exam: Decreased Breath Sounds - Cardiovascular Exam Cardiovascular Exam: REGULAR RHYTHM - GI/Abdominal Exam GI & Abdominal Exam: Distended - Rectal Exam Rectal Exam: Deferred - Exam Exam: NORMAL INSPECTION - Extremities Exam Extremities Exam: absent: Pedal Edema - Back Exam Back Exam: absent: CVA tenderness (L), CVA tenderness (R) Assessment and Plan (1) Cellulitis Status: Acute - Assessment and Plan (Free Text) Assessment: 43 y.o M with PMH of DM and HTN for left leg cellulits and ulceration - improving cont po rx as out pt
--- NOTE | 2018-06-11 22:10 | CP.PCM.DIS ---
Provider - Provider Date of Admission: 06/08/18 18:28 Attending physician: Efrain Cabrera MD Hospital Course - Lab Results Lab Results: Micro Results 06/08/18 18:40 Blood-Venous Blood Culture - Preliminary NO GROWTH AFTER 3 DAYS 06/08/18 18:10 Blood-Venous Blood Culture - Preliminary NO GROWTH AFTER 3 DAYS 06/09/18 21:28 Leg - Left Gram Stain - Final 06/09/18 21:28 Leg - Left Wound Culture - Final Staphylococcus Aureus Most Recent Lab Values WBC 10.4 K/uL (4.8-10.8) 06/08/18 18:35 RBC 4.59 Mil/uL (4.40-5.90) 06/08/18 18:35 Hgb 13.9 g/dL (12.0-18.0) D 06/08/18 18:35 Hct 39.3 % (35.0-51.0) 06/08/18 18:35 MCV 85.6 fL (80.0-94.0) 06/08/18 18:35 MCH 30.4 pg (27.0-31.0) 06/08/18 18:35 MCHC 35.5 g/dL (33.0-37.0) 06/08/18 18:35 RDW 12.4 % (11.5-14.5) 06/08/18 18:35 Plt Count 295 K/uL (130-400) 06/08/18 18:35 MPV 7.8 fL (7.2-11.7) 06/08/18 18:35 Neut % (Auto) 69.1 % (50.0-75.0) 06/08/18 18:35 Lymph % (Auto) 21.1 % (20.0-40.0) 06/08/18 18:35 Benson % (Auto) 5.6 % (0.0-10.0) 06/08/18 18:35 Eos % (Auto) 3.0 % (0.0-4.0) 06/08/18 18:35 Baso % (Auto) 1.2 % (0.0-2.0) 06/08/18 18:35 Neut # (Auto) 7.2 K/uL (1.8-7.0) H 06/08/18 18:35 Lymph # (Auto) 2.2 K/uL (1.0-4.3) 06/08/18 18:35 Benson # (Auto) 0.6 K/uL (0.0-0.8) 06/08/18 18:35 Eos # (Auto) 0.3 K/uL (0.0-0.7) 06/08/18 18:35 Baso # (Auto) 0.1 K/uL (0.0-0.2) 06/08/18 18:35 Sodium 136 mmol/L (132-148) 06/08/18 18:35 Potassium 4.4 mmol/L (3.6-5.2) 06/08/18 18:35 Chloride 97 mmol/L (98-107) L 06/08/18 18:35 Carbon Dioxide 28 mmol/L (22-30) 06/08/18 18:35 Anion Gap 16 (10-20) 06/08/18 18:35 BUN 14 mg/dL (9-20) 06/08/18 18:35 Creatinine 0.6 mg/dL (0.8-1.5) L 06/08/18 18:35 Est GFR ( Amer) > 60 06/08/18 18:35 Est GFR (Non-Af Amer) > 60 06/08/18 18:35 POC Glucose (mg/dL) 126 mg/dL (65-110) H 06/11/18 16:43 Random Glucose 115 mg/dL (75-110) H 06/08/18 18:35 Calcium 9.8 mg/dl (8.6-10.4) 06/08/18 18:35 Total Bilirubin 0.5 mg/dL (0.2-1.3) 06/08/18 18:35 AST 30 U/L (17-59) 06/08/18 18:35 ALT 37 U/L (21-72) 06/08/18 18:35 Alkaline Phosphatase 89 U/L (38-126) 06/08/18 18:35 Total Protein 7.5 g/dL (6.3-8.3) 06/08/18 18:35 Albumin 4.6 g/dL (3.5-5.0) 06/08/18 18:35 Globulin 2.9 gm/dL (2.2-3.9) 06/08/18 18:35 Albumin/Globulin Ratio 1.6 (1.0-2.1) 06/08/18 18:35 Discharge Exam - Head Exam Head Exam: NORMOCEPHALIC Discharge Plan - Discharge Medications Prescriptions: Lactobacillus Acidophilus [Bacid Acidophilus] 1 cap PO BID #20 cap Clindamycin [Clindamycin HCl] 300 mg PO Q8H #30 cap - Follow Up Plan Condition: STABLE Disposition: HOSPICE - HOME Instructions: Clindamycin (Systemic), Cellulitis (Skin Infection), Adult (DC), Lactobacillus Referrals: Efrain Cabrera MD [Staff Provider] - Omkar Robb DPM [Staff Provider] -
--- NOTE | 2018-06-12 05:12 | DS ---
DISCHARGE DIAGNOSES: 1. Infected left leg wound due to laceration from a sharp object. 2. Hypertension. 3. Hyperlipidemia. 4. Type 2 diabetes. HOSPITALIZATION COURSE: This is a 43-year-old male with a history of diabetes, hypertension and hyperlipidemia, who had an injury to his left holliday and he developed infection with purulent discharge. The patient was treated with vancomycin, wound cultured, and the patient was discharged on clindamycin. He is feeling better. He will continue his home insulin regimen. PHYSICAL EXAMINATION: VITAL SIGNS: Blood pressure 111/68, pulse , respiratory rate 20, temperature 98.1. LUNGS: Clear. CARDIOVASCULAR SYSTEM: S1 and S2, regular. ABDOMEN: Soft. PLAN: The patient will need outpatient followup of wound here. Efrain Cabrera MD
== END 2018-06-11 19:05 | disposition home or self-care (01) | DRG 383 ==
LOC: C.ER 16:55 → C.9E 18:28 → C.3T 19:29
PROVIDERS: ADMIT Internal Medicine; ATTEND Internal Medicine
DX: L03.116 Cellulitis of left lower limb (principal); I10 Essential (primary) hypertension; B95.61 Methicillin susceptible Staphylococcus aureus infection as the cause of diseases classified elsewhere; E11.9 Type 2 diabetes mellitus without complications; E78.5 Hyperlipidemia, unspecified; S81.812D Laceration without foreign body, left lower leg, subsequent encounter; F17.200 Nicotine dependence, unspecified, uncomplicated; W11.XXXD Fall on and from ladder, subsequent encounter; W26.9XXD Contact with unspecified sharp object(s), subsequent encounter; Z79.4 Long term (current) use of insulin